=== PATIENT | female | born 1980 | race Hispanic/Latino ===

== ENCOUNTER 2025-03-13 11:56 | Emergency (ER) | payer OTHER ==
[~2025-03-13] VITALS: Ht 152.4 cm; Wt 68.0 kg
[2025-03-13] MEDS: ONDANSETRON HCL 4 MG ORAL DISINTEGRATING TAB PO ONE (13:00)
[2025-03-13] MEDS: HYDROCODONE/APAP 5MG-325MG TAB PO ONE (13:00)
[2025-03-13 15:53] VITALS: PULSE 50; RESP 16; TEMP 98.2; O2SAT 100
== END 2025-03-13 16:00 | disposition home or self-care (01) ==
LOC: ER 12:40
DX: S92.251A Displaced fracture of navicular [scaphoid] of right foot, initial encounter for closed fracture (principal); S93.491A Sprain of other ligament of right ankle, initial encounter; X50.1XXA Overexertion from prolonged static or awkward postures, initial encounter; Y93.01 Activity, walking, marching and hiking; Y92.89 Other specified places as the place of occurrence of the external cause
CPT/HCPCS: 29515; 73590; 73610; 73630; 99283; Q0162